=== PATIENT | female | born 1980 | race Hispanic/Latino ===

== ENCOUNTER 2021-08-09 08:01 | Day surgery (SDC) | payer OTHER ==
[2021-08-04 16:51] LABS: Hemoglobin 10.3 g/dL (12.0-15.5); Mean Corpuscular HGB CONC 30.9 g/dL (32.0-36.0); Mean Corpuscular Volume 77.4 fl (81.6-98.3); Mean Platelet Volume 10.3 fl (7.4-10.4); Platelet Count 226 10x3/uL (150-450); RBC Distribution Width 15.6 % (11.5-14.5); White Blood Cell (WBC) Count 5.5 10x3/uL (3.5-10.5)
[2021-08-04 17:26] LABS: BHCG - Serum Negative (NEGATIVE); Pregs Control Background? CLEAR/WHITE (CLR/WHITE); Pregs Control Bar Appear? YES (CONTROL BAR)
[2021-08-05 02:13] LABS: SARS-CoV-2 PCR by NAA Not Detected (NotDetected)
[2021-08-05 16:30] VITALS: BMI 21.2
[2021-08-09] MEDS ORDERED: Gabapentin 300 MG CAP ONE (08:20)
[2021-08-09] MEDS ORDERED: CeleCOXIB 100 MG CAP ONE (08:21)
[2021-08-09] MEDS ORDERED: Famotidine/PF 20 mg/2ml Vial ONE (08:21)
[2021-08-09] MEDS ORDERED: Lidocaine 1% MPF 2 ML VIAL ONE (08:21)
[2021-08-09] MEDS ORDERED: PROPOFOL 20 ML ONE (09:24)
[2021-08-09] MEDS ORDERED: Midazolam HCl 2 mg/2 ml Vial ONE (09:24)
[2021-08-09] MEDS ORDERED: Fentanyl 100 MCG/2 ML VIAL ONE (09:24)
[2021-08-09] MEDS ORDERED: Rocuronium Bromide 10 MG/ML (10ML VIAL) ONE (09:31)
[2021-08-09] MEDS ORDERED: Dexamethasone 4 mg/ml Vial ONE (09:31)
[2021-08-09] MEDS ORDERED: Ondansetron PF 4 MG/2 ML Vial ONE ×2 (09:31→15:45)
[2021-08-09] MEDS ORDERED: Lidocaine 1% PF 5 ML VIAL ONE (09:31)
[2021-08-09] MEDS ORDERED: EPINEPHrine 1 MG/ML AMP ONE (09:44)
[2021-08-09] MEDS ORDERED: Bupivacaine PF 0.5% 30 ML VIAL ONE (09:44)
[2021-08-09] MEDS ORDERED: ceFAZolin 2 GM/Dextrose 50 ML IVPB ONE (10:00)
[2021-08-09] MEDS ORDERED: Ropivacaine 0.2% 550 ML 550 ML NERVE BLCK SCH ×2 (10:45)
[2021-08-09] MEDS ORDERED: Glycopyrrolate 0.2 MG/ML 5 ML SYRINGE ONE (11:49)
[2021-08-09] MEDS ORDERED: SUGAMMADEX SODIUM 200 MG/2 ML VIAL ONE (11:53)
[2021-08-09] MEDS ORDERED: Meperidine HCl/PF 25 MG/ML VIAL ONE (11:57)
[2021-08-09] MEDS ORDERED: Metoclopramide HCl 10 MG/2 ML VIAL ONE (14:19)
[2021-08-09] MEDS ORDERED: Scopolamine 1.5 mg/72 hour Patch ONE (16:15)
== END 2021-08-09 16:50 | disposition home or self-care (01) ==
LOC: CSHSDC 08:01
PROVIDERS: ATTEND Obstetrics & Gynecology
PROC: 0UT94ZZ Resection of Uterus, Percutaneous Endoscopic Approach (ICD-10-PCS; principal; 2021-08-09)
PROC: 0UT74ZZ Resection of Bilateral Fallopian Tubes, Percutaneous Endoscopic Approach (ICD-10-PCS; principal; 2021-08-09)
PROC: 8E0W8CZ Robotic Assisted Procedure of Trunk Region, Via Natural or Artificial Opening Endoscopic (ICD-10-PCS; principal; 2021-08-09)
DX: D25.9 Leiomyoma of uterus, unspecified (principal); N93.0 Postcoital and contact bleeding; Z20.822 Contact with and (suspected) exposure to COVID-19
CPT/HCPCS: 36415; 84703; 85027; 86850; 86900; 86901; 88307; A4306; J0171; J0690; J1100; J2175; J2250; J2405; J2704; J2765; J2795; J3010; S0020; S0028; U0003; U0005